=== PATIENT | female | born 1935 | race Caucasian/White ===

== ENCOUNTER → 2018-07-09 | Outpatient (CLI) | payer OTHER ==
[~2018-07-09] MED LIST: ALLEGRA ALLERG180 MG PO; ASPIRIN325 PO; CHLORDIAZEPO-A1 EACH PO; COQ-10100 MG PO; EC-NAPROSYN500 M1 PO; LOPID600 MG PO; MIRALAX17 GM PO; NEXIUM 24HR20 MG PO; NORCO 5-325 TA1 EACH PO; OMEGA-31000 M1 PO; PAROXETINE HCL20 MG PO; RED YEAST RICE600 MG PO; REFRESH CELLUVI1 APP OPHTHALMIC; TENORMIN25 MG PO; TRAMADOL 50 MG50 MG PO; VITAMIN D31000 UNIT PO
== END ==
LOC: MRI 11:46
DX: S32.502A Unspecified fracture of left pubis, initial encounter for closed fracture (principal); S76.012A Strain of muscle, fascia and tendon of left hip, initial encounter; I10 Essential (primary) hypertension; E78.5 Hyperlipidemia, unspecified; K21.9 Gastro-esophageal reflux disease without esophagitis; I25.10 Atherosclerotic heart disease of native coronary artery without angina pectoris; X58.XXXA Exposure to other specified factors, initial encounter; Y93.89 Activity, other specified; Y92.89 Other specified places as the place of occurrence of the external cause; Y99.8 Other external cause status